=== PATIENT | male | born 1955 | race Caucasian/White ===

== ENCOUNTER 2018-03-04 15:17 | Emergency (ER) | payer OTHER ==
[2018-03-04 16:05] VITALS: BP 159/78
--- NOTE | 2018-03-04 16:36 | UC ---
Throat Pain/Nasal Kong HPI - HPI Summary HPI Summary: Started w/ 2 days of sinus congestion and post nasal drip. got flu and pneumonia shot this year. - History of Current Complaint Chief Complaint: UCRespiratory Stated Complaint: CONGESTION Time Seen by Provider: 03/04/18 16:28 Hx Obtained From: Patient Pain Intensity: 7 Pain Scale Used: 0-10 Numeric - Allergies/Home Medications Allergies/Adverse Reactions: Allergies Allergy/AdvReac Type Severity Reaction Status Date / Time No Known Allergies Allergy Verified 03/04/18 15:58 Home Medications: Home Medications Insulin Detemir [Levemir Flextouch] 80 unit BID 03/04/18 [History Confirmed ] Metoprolol Tartrate TAB* [Lopressor TAB*] 50 mg PO BID 03/04/18 [History Confirmed 03/04/18] PMH/Surg Hx/FS Hx/Imm Hx Previously Healthy: Yes Cardiovascular History: Hypertension Respiratory History: COPD - Surgical History Surgical History: Yes Surgery Procedure, Year, and Place: double bypass, heart cath, appy - Family History Known Family History: Positive: Cardiac Disease, Hypertension - Social History Alcohol Use: None Substance Use Type: None Smoking Status (MU): Heavy Every Day Tobacco Smoker Type: Cigarettes Amount Used/How Often: 1 ppd Length of Time of Smoking/Using Tobacco: started at age 14 Have You Smoked in the Last Year: Yes Review of Systems All Other Systems Reviewed And Are Negative: Yes Constitutional: Positive: Negative. Negative: Fever, Chills, Fatigue Skin: Negative: Rash ENT: Positive: Nasal Discharge, Sinus Congestion, Sinus Pain/Tenderness. Negative: Dental Pain, Sore Throat, Ear Ache Respiratory: Negative: Shortness Of Breath, Cough Cardiovascular: Positive: Negative Gastrointestinal: Negative: Vomiting, Diarrhea Neurological: Negative: Headache Physical Exam Triage Information Reviewed: Yes Appearance: Well-Appearing Vital Signs: Initial Vital Signs Temp 98.1 F 03/04/18 16:00 Pulse 78 03/04/18 16:00 Resp 18 03/04/18 16:00 BP 159/78 03/04/18 16:00 Pulse Ox 97 03/04/18 16:00 Vital Signs Reviewed: Yes ENT: Positive: Pharynx normal, Nasal congestion, Nasal drainage, TMs normal, Uvula midline, Other - dentures. Negative: Sinus tenderness Neck: Positive: Nontender, No Lymphadenopathy Respiratory Exam: Normal Cardiovascular Exam: Normal Skin: Negative: Rashes Throat Pain/Nasal Course/Dx - Course Assessment/Plan: sinusitis in a smoker; viral etiology. otc medication recommended. vitals good. exam unremarkable. - Differential Dx/Diagnosis Differential Diagnosis/HQI/PQRI: Pharyngitis, Sinusitis, URI Provider Diagnosis: Viral sinusitis Discharge - Sign-Out/Discharge Documenting (check all that apply): Patient Departure All imaging exams completed and their final reports reviewed: No Studies - Discharge Plan Condition: Good Disposition: HOME Patient Education Materials: Sinusitis (ED) Referrals: Nicolasa TAYLOR,Carlos Diaz [Primary Care Provider] - Additional Instructions: I think you have a viral sinusitis. Please use over the counter decongestants. Your blood pressure is slightly elevated, please follow up with pcp about this. - Billing Disposition and Condition Condition: GOOD Disposition: Home
== END 2018-03-04 16:46 | disposition home or self-care (01) ==
LOC: UCCORT 15:17
DX: J32.9 Chronic sinusitis, unspecified (principal); B97.89 Other viral agents as the cause of diseases classified elsewhere; I10 Essential (primary) hypertension; F17.210 Nicotine dependence, cigarettes, uncomplicated
CPT/HCPCS: 99211; G0463

== ENCOUNTER 2018-03-06 13:01 | Emergency (ER) | payer OTHER ==
[2018-03-06 13:15] VITALS: BP 146/66
--- NOTE | 2018-03-06 14:11 | UC ---
Throat Pain/Nasal Kong HPI - HPI Summary HPI Summary: Patient was seen two days ago and diagnosed with a virus He is getting worse, increase cough and sinus drainage. - History of Current Complaint Chief Complaint: UCGeneralIllness Stated Complaint: CHEST CONGESTION Time Seen by Provider: 03/06/18 14:01 Hx Obtained From: Patient Onset/Duration: Sudden Onset, Lasting Days Severity: Moderate Pain Intensity: 0 Associated Signs & Symptoms: Positive: Dysphagia, Wheezing, Sinus Discomfort, Nasal Discharge - Allergies/Home Medications Allergies/Adverse Reactions: Allergies Allergy/AdvReac Type Severity Reaction Status Date / Time No Known Allergies Allergy Verified 03/06/18 13:15 PMH/Surg Hx/FS Hx/Imm Hx Previously Healthy: Yes - Surgical History Surgical History: Yes Surgery Procedure, Year, and Place: double bypass, heart cath, appy - Family History Known Family History: Positive: Cardiac Disease, Hypertension - Social History Alcohol Use: None Substance Use Type: None Smoking Status (MU): Heavy Every Day Tobacco Smoker Type: Cigarettes Amount Used/How Often: 1 ppd Length of Time of Smoking/Using Tobacco: started at age 14 Have You Smoked in the Last Year: Yes Review of Systems All Other Systems Reviewed And Are Negative: Yes Constitutional: Positive: Chills, Fatigue Skin: Positive: Negative Eyes: Positive: Negative ENT: Positive: Sore Throat, Ear Ache, Nasal Discharge, Sinus Pain/Tenderness Respiratory: Positive: Shortness Of Breath, Cough Cardiovascular: Positive: Negative Gastrointestinal: Positive: Negative Genitourinary: Positive: Negative Motor: Positive: Negative Neurovascular: Positive: Negative Musculoskeletal: Positive: Negative Neurological: Positive: Headache Psychological: Positive: Negative Is Patient Immunocompromised?: Yes - smoker Physical Exam Triage Information Reviewed: Yes Appearance: Well-Appearing, Well-Nourished, Pain Distress Vital Signs: Initial Vital Signs Temp 97.8 F 03/06/18 13:13 Pulse 71 03/06/18 13:13 Resp 16 03/06/18 13:13 BP 146/66 03/06/18 13:13 Pulse Ox 96 03/06/18 13:13 Vital Signs Reviewed: Yes Eye Exam: Normal ENT: Positive: Pharyngeal erythema - wiht PND, Nasal congestion, Nasal drainage , Tonsillar swelling, Tonsillar exudate, Sinus tenderness Dental Exam: Normal Neck exam: Normal Neck: Positive: Supple, Nontender, No Lymphadenopathy Respiratory Exam: Normal Respiratory: Positive: Chest non-tender, Lungs clear, Normal breath sounds Cardiovascular Exam: Normal Cardiovascular: Positive: RRR Abdominal Exam: Normal Abdomen Description: Positive: Nontender, No Organomegaly, Soft Bowel Sounds: Positive: Present Musculoskeletal Exam: Normal Neurological Exam: Normal Psychological Exam: Normal Skin Exam: Normal Throat Pain/Nasal Course/Dx - Course Course Of Treatment: hx obtained, exam performed, meds reviewed, treated for sinusitis, patient is a smoker and has COPD - Differential Dx/Diagnosis Differential Diagnosis/HQI/PQRI: Otitis Media, Pharyngitis, Sinusitis, URI Provider Diagnosis: Sinusitis Discharge - Sign-Out/Discharge Documenting (check all that apply): Patient Departure All imaging exams completed and their final reports reviewed: No Studies - Discharge Plan Condition: Stable Disposition: HOME Prescriptions: Azithromyxin BLAYNE (NF) [Z-Blayne (Zithromax) 250 mg tabs #6] 2 tab PO .TODAY, THEN 1 DAILY #6 tab Patient Education Materials: Sinusitis (ED) Referrals: Nicolasa TAYLOR,Carlos Diaz [Primary Care Provider] - Additional Instructions: 1. take the medication as prescribed. 2. Increase fluid intake 3. Gargle with salt water 4. Tylenol and Motrin as needed for pain. - Billing Disposition and Condition Condition: STABLE Disposition: Home
== END 2018-03-06 14:17 | disposition home or self-care (01) ==
LOC: UCCORT 13:01
DX: J32.9 Chronic sinusitis, unspecified (principal); J44.9 Chronic obstructive pulmonary disease, unspecified; R13.10 Dysphagia, unspecified; J39.2 Other diseases of pharynx; F17.210 Nicotine dependence, cigarettes, uncomplicated
CPT/HCPCS: 99212; G0463